=== PATIENT | female | born 1980 | race Caucasian/White ===

== ENCOUNTER → 2020-12-07 12:57 | Outpatient (CLI) | payer MEDICAID, SELFPAY ==
--- NOTE | 2020-12-07 | BRBX_PTH ---
PATIENT: DESHAWN RODRIGUES LOC: [facility] U#:[id number] AGE/SX: 44/F ROOM: RE12/07/[address]: Dr. Reynaldo Posey MD : 1980 BED: DIS: SPEC #: [id number] RECD: 12/07/20 14:03 STATUS: REMIGIO JANES #: [id number] ROSEANNE: 12/07/20 00:[address]: Reynaldo Posey DEPT: SURGICAL PATHOLOGY RECD BY: Ortega Hughes ENTERED: 12/08/20 09:50 SP TYPE: BREAST BX OT DR: No Primary Care Phys Tissues: Left breast, NOS Procedures: Surgery Specimen Level IV HEADER OPERATION: Left stereotactic breast biopsy PRE-OP DIAGNOSIS: Left breast irregular density central middle depth TISSUE SUBMITTED: Left breast core tissue ISCHEMIC TIME: 1 minute FIXATION TIME: 29 hours MICROSCOPIC DIAGNOSIS Left breast, stereotactic core biopsy: Invasive ductal carcinoma with the following characteristics: Maximal length ? 7 millimeters Nuclear grade ? 2-3/3 See comment. AM:xiao 12/09/2020 COMMENT ER/TN/Yvw1ixc studies are being performed on sections of tumor and the results from this study will be reported separately ([id number]). Case has been reviewed in consultation with Dr. Aviles who concurs with the above diagnosis. ANNE:DANIEL MICROSCOPIC DESCRIPTION Slides are reviewed. GROSS DESCRIPTION Received in fixative is one container labeled with the patient's name and designated left breast. The specimen consists of multiple elongated fragments of meyers-yellow fibroadipose tissue that in aggregate measure 7.5 x 3 x 0.3 cm. The entire specimen is submitted in three cassettes. / DANIEL:xiao 12/08/20 TC:0 CPT: 37224 ADDENDUM ADDENDUM ADDENDUM ADDENDUM ADDENDUM ADDENDUM ADDENDUM ADDENDUM ADDENDUM ADDENDUM ADDENDUM ADDENDUM 12/27/2020 10:58 ADDENDUM 12/27/2020 10:58 ADDENDUM 12/27/2020 10:58 ADDENDUM 12/27/2020 10:58 ADDENDUM 12/27/2020 10:58 This addendum is added to incorporate an outside pathology consultation report. The case was examined at [facility] (#[id number]) and the following diagnosis was rendered. Breast, left, stereotactic core biopsy: Invasive ductal carcinoma, provisional histologic grade 2. The invasive carcinoma is 7 mm in greatest dimension. Ductal carcinoma in situ, nuclear grade 2-3, cribriform and solid types. Please see complete above mentioned consultation report in EMR
--- NOTE | 2020-12-07 | IMM_PTH ---
PATIENT: DESHAWN RODRIGUES LOC: [facility] U#:[id number] AGE/SX: 44/F ROOM: RE12/07/[address]: Dr. Reynaldo Posey MD : 1980 BED: DIS: SPEC #: [id number] RECD: 12/09/20 13:12 STATUS: REMIGIO RELarry #: [id number] ROSEANNE: 12/07/20 00:[address]: Reynaldo Posey DEPT: IMMUNOHISTOCHEMISTRY RECD BY: Pretty Cárdenas ENTERED: 12/09/20 13:13 SP TYPE: IMMUNO OTHR DR: No Primary Care Phys Tissues: Left breast, NOS Procedures: CALPONIN-1 (add) CK5-6 (add) CK8 (add) GREENBERG-2 (add) E-CAD (add) HER2 CARLOS EDUARDO (add) KI-67 (add) P53 (add) AK (add) IN SITU HYBRIDIZATION P40 (add) ER (initial) PHYSICIAN & INSTITUTION [place] [id number] SPECIMEN INFORMATION: Tissue Source: Left breast, central middle depth Clinical Info: Left breast irregular density central middle depth Specimen Number: [id number] #2 CPT code: 34086, 77969 x7, 24428 x3, 31751 x2 METHODOLOGY: Deparaffinized sections of prefer/formalin-fixed tissue or PAP/DQ stained slides are incubated with monoclonal/polyclonal antibodies/oligonucleotide probes. Localization is made via biotin free immunoperoxidase method. Appropriate controls are performed and reacted as expected. Results on target cell population are indicated in the following table: RESULTS: ANTIBODY / CLONE RESULT Block 2 P53 (DO-7) positive, 70% Ki-67 (30-9) positive, >50% CK8 (73umkgX30) positive CK5-6 (D5 & 1684) negative Calponin-1 (GF967V) negative P40 (BC28) negative E-Cad (ECH-6) positive GREENBERG-2 (SP21) positive, dim MORPHOMETRIC ANALYSIS ER (clone 6F11) >95%, moderate intensity AK (clone 16/1E2) 80%, moderate to weak intensity Her-2Neu (clone CB11) 1-2+ The prognostic test for HER2 is performed on formalin-fixed paraffin embedded tissue. A 3+ (positive) staining pattern is defined as intense, homogeneous, complete, circumferential membranous staining in >10% of contiguous tumor cells. A similar weak (2+) staining pattern is interpreted as equivocal. NIKI follow-up testing is recommended for all equivocal cases. Positivity/negativity for ER/AK is reported if > or < 1% of the tumor cells are immuno- reactive, respectively. The ASCO/CAP criteria is used for scoring. Reference: Journal of Clinical Oncology, 2013; 31:2027-4777 & 2010; 16:2065-8971. Duration of fixation: 29 Hrs; Sample Adequate: Yes. These assays have not been validated on decalcified tissues. Results should be interpreted with caution given the likelihood of false negativity on decalcified specimens. These tests were developed and their performance characteristics determined by [facility]. They may not have been cleared or approved by the U.S. Food and Drug Administration. The FDA has determined that such clearance or approval is not necessary. The above immunohistochemical/dualISH markers are ordered and reviewed by the Pathologist. INTERPRETATION: Left breast, central middle depth, stereotactic core biopsy: Invasive ductal carcinoma, nuclear grade 2-3. Positive for estrogen receptors (favorable prognostic indicator). Positive for progesterone receptors (favorable prognostic indicator). Equivocal for overexpression of FVS8vtg. AM:xiao 12/10/2020 ADDENDUM ADDENDUM ADDENDUM ADDENDUM ADDENDUM ADDENDUM ADDENDUM ADDENDUM ADDENDUM ADDENDUM ADDENDUM ADDENDUM ADDENDUM ADDENDUM ADDENDUM ADDENDUM ADDENDUM ADDENDUM ADDENDUM ADDENDUM ADDENDUM ADDENDUM ADDENDUM ADDENDUM 12/22/2020 12:01 ADDENDUM 12/22/2020 12:01 ADDENDUM 12/22/2020 12:01 ADDENDUM 12/22/2020 12:01 ADDENDUM 12/22/2020 12:01 IN SITU HYBRIDIZATION (NIKI) FOR HER2 Interpretation: Amplified HER2 : CEP-17 Ratio: 2.74 Average HER2 Signal: 10.5 Average CEP-17 Signal: 3.85 Number of Tumor Cells Scanned: 50 Interpretative Information: The INFORM HER2 Dual NIKI DNA Probe Cocktail assay is performed on formalin-fixed paraffin embedded tissue and determines HER2 gene status by detecting HER2 copies via silver in situ hybridization (SISH) and Chromosome 17 copies via chromogenic red in situ hybridization on tumor cells. A minimum of 20 cells representing > 10% of contiguous and homogeneous invasive tumor cells were analyzed. HER2 gene status is classified as Non-amplified (HER2/Chr17 ratio < 2.0) or Amplified (HER2/Chr17 ratio greater than or equal to 2.0). If the resulting HER2/Chr17 ratio falls within 1.8 - 2.2 (Borderline), retesting by FISH is recommended. Reference: Milly AC, Antionette OROZCO, Anyi DG, et al: Recommendations for Human Epidermal Growth Factor Receptor 2 Testing in Breast Cancer: [place] Society of Clinical Oncology / College of [place] Pathologists Clinical Practice Guideline Update. J Clin Oncol 31:7564-9772, 2013. AM:xiao 12/22/2020 Case has been reviewed in consultation with Dr. Aviles who concurs with the above diagnosis. IDC:SJ
--- NOTE | 2020-12-07 13:44 | PCM.HP.BLA ---
History and Physical Date of Admission: 12/07/20 Nieves Calderón 1980 ? ? REFERRING PHYSICIAN: Denisa Hansen MD ? CHIEF COMPLAINT: Abnormal mammogram (primary encounter diagnosis) ? HPI: The patient is a 40 year old female with a complaint of an abnormal mammogram. The patient had a mammogram with ultrasound on 11/23/20 which demonstrated Birads 4 left breast: ? ? The patient denies a history of breast masses. She does perform a self breast exam routinely. She notes no skin changes. She denies nipple discharge. She notes no axillary masses. She notes no family history of breast problems. She notes no significant breast trauma or breast difficulties in the past. ? The patient is being seen by me today at the request of Dr. Hansen for my opinion and advice regarding Abnormal mammogram (primary encounter diagnosis). ? PAST MEDICAL HISTORY PAST MEDICAL HISTORY Diagnosis Date ? Abnormal glandular Papanicolaou smear of cervix ? ? Abn. Pap smear (cervix) ? Dysthymic disorder ? ? Depression (non-psychotic) ? Human papillomavirus in conditions classified elsewhere and of unspecified site ? ? Irritable bowel syndrome ? ? Migraine, unspecified, with intractable migraine, so stated, without mention of status migrainosus 2001 ? Migraine without aura ? Mixed hyperlipidemia ? ? Hyperlipidemia ? ? PAST SURGICAL HISTORY PAST SURGICAL HISTORY Procedure Laterality Date ? APPENDECTOMY ? 2015 ? DELIVERY ONLY ? 08/24/2007 ? , low transverse ? COLPOSCOPY (VAGINOSCOPY) ? 10/2006 ? Colposcopy ? IUD INSERTION ([facility])_*[place] ? 11/01/07,10/06/2013 ? Mirena ? IUD REMOVAL ? 01/2016 ? REMOVAL OF TONSILS,<12 Y/O ? 1994 ? Tonsillectomy and adnoids ? ? ? CURRENT MEDICATIONS Current Outpatient Medications Medication Sig Dispense Refill ? escitalopram oxalate (LEXAPRO) 10 mg tablet Take 10 mg by mouth once daily. ? ? ? levothyroxine (SYNTHROID) 25 mcg tablet Take 25 mcg by mouth once daily. ? ? ? tiZANidine (ZANAFLEX) 4 mg tablet TAKE 1 TABLET BY MOUTH THREE TIMES DAILY NEEDED FOR SPASMS ? ? ? famotidine (PEPCID) 20 mg tablet Take 20 mg by mouth twice daily. ? ? ? hyoscyamine SR (LEVBID) 0.375 mg 12 hr tablet Take 0.375 mg by mouth. ? ? ? montelukast (SINGULAIR) 10 mg tablet Take 10 mg by mouth. ? ? ? ondansetron (ZOFRAN) 8 mg tablet Take 8 mg by mouth. ? ? ? cetirizine (ZYRTEC) 10 mg tablet Take 10 mg by mouth. ? ? ? Wheat Dextrin 3 gram/3.5 gram powd Take 25 g by mouth. ? ? ? No current facility-administered medications for this visit. ? ? ALLERGIES: Augmentin [Amoxicillin-Pot Clavulanate], Latex, and Penicillins ? PERSONAL HISTORY: SOCIAL HISTORY Social History ? Tobacco Use ? Smoking status: Never Smoker ? Smokeless tobacco: Never Used Vaping Use ? Vaping Use: Never used Substance Use Topics ? Alcohol use: Yes ? ? Comment: Rarely ? Drug use: No ? FAMILY HISTORY: FAMILY HISTORY FAMILY HISTORY Problem Relation Age of Onset ? Arthritis Mother ? ? Hypertension Mother ? ? Lipids Mother ? ? Thyroid Mother ? ? Thyroid Cancer ? Diabetes Mother ? ? Breast Cancer Mother 60 ? had genetic testing ? other (Depression) Mother ? ? Depression/Anxiety ? Diabetes Father ? ? Hypertension Father ? ? Lipids Father ? ? other (Depression) Father ? ? Breast Cancer Sister 45 ? paternal side- ? Arthritis Maternal Grandmother ? ? Breast Cancer Maternal Grandmother ? ? Diabetes Maternal Grandmother ? ? Thyroid Maternal Grandmother ? ? Psychiatry Paternal Grandmother ? ? Cancer Paternal Grandfather ? ? SKIN CANCER ? Cancer Maternal Uncle ? ? SKIN CANCER ? Diabetes Maternal Uncle ? ? Thyroid Maternal Uncle ? ? Breast Cancer Paternal Aunt ? ? ? REVIEW OF SYMPTOMS: The review of systems data was entered by the nurse and reviewed by me ? Nursing Notes: Ninfa Serrano RN 11/30/2020 2:00 PM Signed REVIEW OF SYSTEMS: General: The patient NOTES fatigue, denies weight loss, NOTES weight gain, NOTES feeling hot, and denies feelings of cold. Eyes: The patient denies glaucoma, denies eye injury/surgery, wears glasses or contacts. Ear/Nose/Throat: The patient NOTES allergies, denies hayfever, NOTES ear infections, and denies bloody noses. Cardiovascular: The patient denies chest pain, denies heart disease, denies high blood pressure,denies cardiac stent, denies prior heart attack, denies irregular heart beat, NOTES high cholesterol, denies poor circulation, denies heart failure, other cardiac issues, denies claudication, denies cold feet, denies peripheral arterial stent. Respiratory: The patient denies tuberculosis, NOTES pneumonia, denies frequent cough, denies pulmonary embolism, denies shortness of breath, and denies coughing up blood. Gastrointestinal: The patient denies difficulty swallowing, NOTES acid reflux, denies ulcers, denies vomiting, denies jaundice/hepatitis, NOTES gallbladder problems, denies black or tarry stools, NOTES hemorrhoids, denies bleeding from rectum, denies diverticulitis, NOTES constipation, NOTES diarrhea, denies loss of stool control, and NOTES hernias. Kidney/Bladder: The patient denies kidney stones, NOTES urine infections, and denies bloody urine. Skin: The patient denies a history of skin cancer, denies bleeding/changing moles, and NOTES a history of skin rash. Neurologic: The patient denies a history of epilepsy/convulsions, NOTES headaches, denies head/spinal injuries, and denies stroke/TIA. Psychiatric: The patient NOTES psychiatric medications, NOTES depression, and denies voices, denies substance abuse. Endocrine: The patient NOTES thyroid disorders, denies diabetes, and denies hormonal problems. Hematologic: The patient denies a history of bruising, denies bleeding, and NOTES anemia, denies blood clots. Infections: The patient denies a history of measles and mumps, denies rheumatic fever, and NOTES sexually transmitted diseases. Musculoskeletal: The patient NOTES back pain/injury, NOTES back problems, NOTES sciatica, NOTES knee/foot trouble, NOTES arthritis, or denies gout. ? ? When was patient's last Mammogram screening? 11/16/2020 ? Last Colonoscopy: None ? Ninfa Serrano RN ? PHYSICAL EXAMINATION: ? General: The patient is 40 year old female, well nourished, well hydrated in no acute distress. The patient is oriented to time, place, and person. ? VITALS: Blood pressure 126/64, pulse 99, temperature 36.5 ?C (97.7 ?F), height 172.7 cm (5' 8), weight 88.9 kg (196 lb), last menstrual period 08/26/2020, SpO2 97 %. Body mass index is 29.8 kg/m?. ? HEENT: Normal cephalic, ataumatic, pupils are equally round, sclera are anicteric, mucous membranes are moist, oropharynx is clear. Neck has no masses, asymmetry or lymphadenopathy. Thyroid is unremarkable. ? Respiratory: Clear to auscultation and percussion. Normal respiratory excursion and pattern. ? Cardiac: Examination is regular rate and rhythm. ? Abdominal exam: Soft, nontender, with no palpable masses. No hepatosplenomegaly. No palpable hernias. ? Rectal exam: exam deferred Extremities: no clubbing, cyanosis or edema. No adenopathy. ? Breast: Visual inspection reveals no retractions, nipple inversion, or skin changes. Palpation of the right breast reveals no dominant or suspicious masses, but multiple benign-feeling nodules. Palpation of the left breast reveals no dominant or suspicious masses, but multiple benign-feeling nodules. Axillary exam demonstrates no suspicious masses in either the left or right axilla. There is no nipple discharge expressed from either the left or right breast. ? LABORATORY VALUES: As Noted ? RADIOLOGIC STUDIES: Comparison is made to exam dated: ?11/23/2020 mammogram - [facility]. ?Color flow and real-time ultrasound of the left breast 12 o'clock region were performed. ?Melgoza scale images of the real-time examination were reviewed. There is 0.7 cm irregular area in the left breast at 12 o'clock posterior depth. ?This irregular area displays posterior acoustic shadowing. ?This correlates with mammography findings. No abnormal left axillary lymph nodes. ? Assessment IMPRESSION: Abnormal mammogram (primary encounter diagnosis) ? PLAN: I plan to perform a stereotactic biopsy of the left breast. The planned surgical procedure was discussed extensively with the patient. The risks, benefits, anticipated outcomes and possible complications were mentioned. My staff has also explained the procedure in understandable terms and the patient was given the option to take printed material concerning the planned procedure. The patient had the opportunity to ask questions concerning the planned procedure. The patient freely consents to the planned procedure. ? ? Diagnoses: (R92.8) Abnormal mammogram (primary encounter diagnosis) ? My findings have been communicated to Dr. Hansen via shared medical record. This note will be forwarded to ABELARDO Beth. ? Return to Clinic: The patient is instructed to follow-up with me 1 week post operatively. ? COVID (Procedure Consent) Procedure Criteria ? Procedure Criteria: Yes Elective The surgeon/proceduralist and patient have discussed in detail the risk of exposure to and/or potential harm posed by the COVID-19 virus with having a surgery/procedure at this time versus the risk of? delaying the surgery/procedure. It is not possible to know either the risk of delaying the surgery or procedure or chance of getting an infection with perfect accuracy, but a joint decision was made between the patient and the surgeon/proceduralist ?to proceed at this time with the scheduled surgery/procedure as indicated on the consent form. ? ? Reynaldo Posey III, MD I have re-examined the patient. There are no clinical changes since date of exam.
--- NOTE | 2020-12-07 13:44 | PCM.OPRPT ---
Problems Associated Problem List Diagnoses (1) Abnormal mammogram of left breast: Report of Operation Date of Procedure: 12/07/20 Pre-Operative Diagnosis: Abnormal mammogram left breast Post-Operative Diagnosis: Same Surgery/Procedure Performed:: Left stereotactic breast biopsy Surgeon: Reynaldo Posey flanging machine operator: None Estimated Blood Loss (mL): < 25 cc Description of Procedure: Patient was brought into the mammography unit. She was placed in the supine position on the fissure table. Left breast was brought down to the opening. Cc view was obtained. Abnormal lesion was identified. ?15 degree views were obtained. I targeted on the lesion. I prepped the breast with Betadine. I injected 1% lidocaine plain. A skin lyudmila was made. Needle was placed in the prefire position. 2 more stereo views were obtained showing the area to be adequately targeted. Fired the needle took 360 degrees circumferential biopsies. X-ray my specimen few microcalcifications were identified. Back the needle off 7 mm. Placed a small Gelfoam titanium clip into the wound. Patient was taken out of the machine Steri-Strips were applied sterile dressings were applied standard mammogram was obtained. Admit VTE Documentation VTE Present on Admission: No VTE Mechan Device Prophylaxis: None VTE Pharm Prophylaxis ordered?: No Reason prophylaxis not ordered:: Procedure Not Indicated
== END ==
PROVIDERS: Visit Provider Surgery
DX: C50.112 Malignant neoplasm of central portion of left female breast (principal); Z17.0 Estrogen receptor positive status [ER+]; F32.A Depression, unspecified; E78.2 Mixed hyperlipidemia; K58.9 Irritable bowel syndrome, unspecified; Z79.890 Hormone replacement therapy; Z79.899 Other long term (current) drug therapy
CPT/HCPCS: 19081; 88305; 88341; 88342; 88368; J7050; A4648

== ENCOUNTER → 2021-08-19 | Outpatient (CLI) | payer MEDICAID, SELFPAY ==
--- NOTE | 2021-08-19 12:57 | VDLE_ITS ---
Reason For Study: Swelling RIGHT LEFT GSV is normal. GSV is normal. CFV is compressible, spontaneous, phasic, CFV is compressible, spontaneous, phasic, competent and demonstrates normal competent, and demonstrates normal augmentation. augmentation. FV is compressible, spontaneous, phasic, FV is compressible, spontaneous, phasic, competent and demonstrates normal competent and demonstrates normal augmentation. augmentation. POP V is compressible, spontaneous, phasic, POP V is compressible, spontaneous, phasic, competent and demonstrates normal competent and demonstrates normal augmentation. augmentation. T/P Trunk is compressible. T/P Trunk is compressible. PTV is compressible. PTV is compressible. RT PerV is compressible. LT PerV is compressible. Procedure This is a venous duplex using B-mode, color flow and spectral Doppler. Exam performed in department. A preliminary report was called and/or faxed to [facility]. VL/Venous Duplex US - Shravan Extrem Interpretation Summary No evidence for acute deep venous thrombosis bilateral lower extremities with p atent and compressible bilateral great saphenous veins. Ordering Physician: Douglas Jama Performed By: Carmencita Rhodes RVT
== END | disposition home or self-care (01) ==
PROVIDERS: Referring Provider Internal Medicine Hematology & Oncology; Visit Provider Internal Medicine Hematology & Oncology
DX: C50.912 Malignant neoplasm of unspecified site of left female breast (principal); M79.89 Other specified soft tissue disorders
CPT/HCPCS: 93970

== ENCOUNTER 2022-03-30 09:34 | Day surgery (SDC) | payer MEDICAID, SELFPAY ==
--- NOTE | 2022-03-27 07:43 | RAD_ITS ---
INDICATION: PREOP/HX OF RADIATION TX EXAMINATION/TECHNIQUE: X-RAY - XR Chest 2 Views COMPARISON: None. FINDINGS: LINES/DEVICES: There is a right-sided Mediport in place terminating within the expected region of the superior vena cava. LUNGS: No consolidation, edema or effusion. No pneumothorax. MEDIASTINUM AND CARDIOVASCULAR STRUCTURES: Cardiac silhouette not enlarged. Central airways and mediastinal contour are unremarkable. BONES AND SOFT TISSUES: Unremarkable. RAD/Chest PA and Lateral IMPRESSION: No acute cardiopulmonary process. Electronically Signed: Siena Contreras MD at 8:07 EST ,
--- NOTE | 2022-03-27 07:43 | EKG12_ITS ---
Test Reason : PRE-OP Blood Pressure : / mmHG Vent. Rate : 087 BPM Atrial Rate : 087 BPM P-R Int : 146 ms QRS Dur : 086 ms QT Int : 368 ms P-R-T Axes : 036 005 037 degrees QTc Int : 442 ms Normal sinus rhythm Normal ECG Confirmed by JHON LLOYD, EDGARDO ([id number]), deputy editor in chief SEJAL OATES ([id number]) on 03/27/2022 11:00:23 AM Referred By: IBAN Confirmed By:EDGARDO FERREIRA MD
[2022-03-27 08:42] LABS: Hematocrit 40.5 % (37-47); Hemoglobin 13.5 g/dL (12.0-15.0); Mean Corp Hgb Conc 33.3 g/dL (32-36); Mean Corpuscular Hgb 30.9 pg (27.0-32.0); Mean Corpuscular Volume 92.7 fL (81-99); Mean Platelet Vol. 8.3 fl (6.2-12.0); Platelet Count 211 K/mm3 (150-450); RBC Distribution Width CV 12.8 % (11.6-14.6); RBC Distribution Width SD 43.1 fl (35.1-43.9); Red Blood Count 4.37 M/mm3 (4.2-5.4); White Blood Count 6.4 K/mm3 (4.4-11.0)
[2022-03-27 08:51] LABS: International Normalized Ratio 1.1; Prothrombin Time (Protime)PT. 13.5 SECONDS (11.7-14.9)
[2022-03-27 08:52] LABS: Partial Thromboplast Time 25.2 Seconds (24.1-36.2)
[2022-03-30] VITALS (9 sets, daily range): BP systolic 118–150; BP diastolic 72–97; PULSE 70–88; RESP 16–18; TEMP 36.1–37; O2SAT 90–100; BMI 29.0
[2022-03-30] MEDS: Lactated Ringers 1,000 ML 15 ML IV (10:05)
[2022-03-30] MEDS: Acetaminophen 500 MG Tablet 1000 MG PO (10:15)
[2022-03-30] MEDS: Gabapentin 300 MG Capsule PO (10:15)
[2022-03-30] MEDS: Celecoxib 200 MG Capsule 400 MG PO (10:15)
[2022-03-30] MEDS: Scopolamine 1mg/72hr Patch 1 PATCH TD (10:15)
[2022-03-30 10:18] LABS: Internal QC Validated? YES +Cl - CLEAR BKGD
[2022-03-30 10:19] LABS: Pregnancy, Urine Negative Negative
--- NOTE | 2022-03-30 11:25 | OV_PTH ---
PATIENT: DESHAWN RODRIGUES LOC: [facility] U#:[id number] AGE/SX: 41/F ROOM: RE03/30/[address]: Dr. Denisa Hansen MD : 1980 BED: DIS: 03/30/2022 SPEC #: [id number] RECD: 03/30/22 16:55 STATUS: REMIGIO MARRERO #: [id number] ROSEANNE: 03/30/22 11:[address]: Denisa Hansen DEPT: SURGICAL PATHOLOGY RECD BY: Maria De Jesus Cisneros ENTERED: 03/31/22 09:14 SP TYPE: OVARY OTHR DR: Dr. Raheem Gottlieb MD No Primary Care Phys Tissues: A - Ovary, NOS B - Endometrium, NOS Procedures: Surgery Specimen Level IV HEADER OPERATION: Laparoscopic bilateral salpingo-oophorectomy PRE-OP DIAGNOSIS: ER positive, history breast cancer, thickened endometrium TISSUE SUBMITTED: A ? Bilateral fallopian tubes and ovaries, B ? Endometrial curettings MICROSCOPIC DIAGNOSIS A. Right and left ovaries and fallopian tubes, bilateral salpingo-oophorectomies: Right and left ovaries with luteal cysts. Right and left fallopian tubes with no pathologic change. B. Endometrium, curettings: Transition endometrium with recent stromal hemorrhage. Focal tubal metaplasia. AM:xiao 04/03/2022 MICROSCOPIC DESCRIPTION Slides are reviewed. GROSS DESCRIPTION A - Received in fixative is one container labeled with the patient's name and designated bilateral fallopian tubes and ovaries. The specimen consists of two fallopian tubes with adjacent ovaries. The fallopian tubes and ovaries are not designated. Both ovaries are light meyers-white in color and have crinkled external surfaces. One ovary measures 2.8 x 2.5 x 2 cm and the other ovary measures 3 x 2.5 x 1.5 cm. Serial sections of the ovaries reveal multiple cysts ranging in size from 1 to 1.5 cm in greatest dimension. The adjacent fallopian tubes are similar in appearance with average lengths of 4.5 cm and average diameters of 0.7 cm. No tubo-ovarian adhesions are identified. The fallopian tubes and ovaries are submitted in four cassettes as follows: 1 & 2 - one ovary and adjacent fallopian tube, 3 & 4 - the other ovary and adjacent fallopian tube. B - Received in fixative is one container labeled with the patient's name and designated endometrial curettings. The specimen consists of multiple irregular fragments of dark meyers-red soft tissue that in aggregate measure 2.5 x 1.5 x 0.2 cm. The specimen is totally submitted in one cassette. / AM:xiao 03/31/2022 TC:5 CPT: 79019 x2
[2022-03-30] MEDS: Bupivacaine Mpf 0.5% 30 ML VIAL (13:36)
--- NOTE | 2022-03-30 13:46 | OP.PCM_ITS ---
Problems Associated Problem List Diagnoses (1) Carcinoma of breast, estrogen receptor positive: (2) Surgical menopause: (3) Endometrial thickening on ultrasound: Report of Operation Date of Procedure: 03/30/22 Pre-Operative Diagnosis: estrogen receptor + breast ca, need for surgical menopause, thickened endometrium on US Post-Operative Diagnosis: same Surgery/Procedure Performed:: Laparoscopic lateral salpingo-oophorectomy and hysteroscopy D&C Description of Surgical Findings:: Normal-appearing uterus and ovaries, evidence of previous tubal. Normal- appearing ragged endometrium. Normal cervix and vagina Surgeon: Denisa Hansen aluminum siding installer: Madyson Hsu aluminum siding installer: Heidi Olivera M3 Type of Anesthesia: General Anesthesiologist: Elisha Major Special Medications: none Specimen's removed: Bilateral fallopian tubes and ovaries. Endometrial curettings Drains: none Estimated Blood Loss (mL): 10 Fluids Replaced: 700 Description of Procedure: The patient was taken to the operating room where she was prepped and draped in the dorsolithotomy position. A weighted speculum was placed in the vagina and the anterior lip of the cervix was grasped with a tenaculum. The Lissette uterine manipulator was placed and the remainder of the instruments were removed from the vagina. Attention was turned to the abdomen. All port sites were infiltrated with 0.5% Marcaine before skin incisions were made. A [5] mm left upper quadrant incision was made. The anterior abdominal wall was tented up with 2 towel clamps while a [5] mm blade less trocar and sleeve were inserted with the Visiport.. Intraperitoneal placement was confirmed with the laparoscope. The pneumoperitoneum was created and the underlying abdominal contents were intact. The patient was placed in Trendelenburg. 5mm right and left lower quadrant ports were placed under direct visualization lateral to the inferior epigastric vessels. The bowel was swept away and the above findings were noted. The [right] infundibulopelvic ligament was clamped, sealed and transected with the LigaSure device. The antimesenteric portions of the tube were clamped, sealed and transected. The utero-ovarian ligaments were clamped sealed and transected with the LigaSure device . The same procedure was performed on the contralateral side. The specimens were placed in an bag and removed through the left upper quadrant incision. The pedicles were again examined and found to be hemostatic. The left upper quadrant port fascia was closed with 0 Vicryl in a running standard fashion. The lateral ports were removed under direct visualization and no active bleeding was noted. The pneumoperitoneum was released. The skin incisions were closed with Monocryl suture in a subcuticular fashion and skin glue by Dr. Martinez. Dr. Martinez provided uterine manipulation, tissue manipulation for visualization and camera guidance during the surgery. Attention was then turned to the vaginal portion the case. The cervix was dilated serially with Hegar dilators. The [5mm] hysteroscope was placed into the uterine cavity and the above findings were noted. Bilateral tubal ostia [were] identified. Overall the endometrium appeared normal, is probably ragged to be from having the uterine manipulator and The hysteroscope was removed. A gentle sharp curettage was done of the uterine cavity. The instruments were removed from the vagina. The specimen was handed off and sent to pathology. All sponge and needle counts were correct. Vaginal sweep was performed by me. The patient was awakened and taken to the recovery room in stable condition. Hysteroscopic ins: 200cc normal saline Hysteroscopic outs:100cc ] Grafts/Implants Used: none Procedure Start Time: 13:03 Procedure Stop Time: 13:39 Complications none Admit VTE Documentation VTE Present on Admission: No VTE Mechan Device Prophylaxis: SCD's VTE Pharm Prophylaxis ordered?: No Reason prophylaxis not ordered:: Procedure Not Indicated
--- NOTE | 2022-03-30 13:52 | DCINST_ITS ---
Discharge Instructions Diet Discharge Diet: Light diet - advance as tolerated Activity Discharge Activity: May Drive (in 5 days or as tolerated), May Shower (03/31/22) and May Take a Tub Bath (in 1 week) Return to work on:: 04/03/22 May resume sexual activity in: 1-2 weeks Dressing / Incision Call your doctor if your incision/area has: Increased Pain/ Swelling, Foul Smelling Discharge and Swelling at the incision site Call your doctor if you observe: Fever of 101 or Higher and Using more than 1 pad per hour Cleanse incision/area with: Soap & Water (your incisions have skin glue, it can get wet. LEave it on for 10 days or until it falls off) Follow Up Care Please Follow Up With: Denisa Hansen MD When: 1-2 weeks or as needed Test Results: Test results from this visit will be discussed in further detail at your follow- up appointment, if applicable. Dr. Hansen's office [phone] Discharge Plan Admission Primary Reason for Your Visit: Removal of tubes and ovaries and D&C Attending Provider: Denisa Hansen Primary Care Provider: Care Physician,No Primary Consulting Providers: Raheem Gottlieb Discharge Orders/Prescriptions Prescriptions: New ibuprofen [ibuprofen] 600 mg tablet 600 mg PO Q6H PRN (Reason: Pain) Qty: 30 0RF oxycodone 5 mg tablet 5 mg PO Q6H PRN PRN (Reason: severe pain) 7 Days Qty: 10 0RF No Action anastrozole 1 mg Tablet 1 mg PO DAILY atorvastatin 20 mg Tablet 20 mg PO QHS citalopram 10 mg Tablet 10 mg PO DAILY acetaminophen [Tylenol Ex Str Rapid Release] 500 mg Tablet 1,000 mg PO Q6H PRN (Reason: Pain) ergocalciferol (vitamin D2) [Vitamin D2] 1,250 mcg (50,000 unit) Capsule 1,250 mcg PO TU loratadine [Claritin] 10 mg Tablet 10 mg PO DAILY PRN (Reason: ALLERGIES) levothyroxine 100 mcg Capsule 100 mcg PO DAILY famotidine [Pepcid] 40 mg Tablet 40 mg PO PRN PRN (Reason: GERD) Referrals / Follow Up: Care Physician,No Primary [Primary Care Provider] - Disposition Disposition (needs filled in before D/C Order can be placed): Home, Self Care
== END 2022-03-30 15:57 | disposition home or self-care (01) ==
LOC: SDC 09:34 → AC 09:36
PROVIDERS: Anesthesiology; Referring Provider Obstetrics & Gynecology; Visit Provider Obstetrics & Gynecology
PROC: (CPT 58661; principal; 2022-03-30 11:10)
PROC: 0UDB8ZZ Extraction of Endometrium, Via Natural or Artificial Opening Endoscopic (ICD-10-PCS; CPT 58558; 2022-03-30 11:10)
DX: N83.11 Corpus luteum cyst of right ovary (principal); C50.912 Malignant neoplasm of unspecified site of left female breast; N83.12 Corpus luteum cyst of left ovary; Z17.0 Estrogen receptor positive status [ER+]; Z80.3 Family history of malignant neoplasm of breast
CPT/HCPCS: 58661; 58558; 00840; 36415; 71046; 81025; 84443; 85027; 85610; 85730; 86850; 86900; 86901; 88305; 93005; J7120; J2405